=== PATIENT | male | born 1930 | race Two or more races ===

== ENCOUNTER 2017-02-22 13:15 | Outpatient (CLI) | payer MEDICARE, MEDICAID ==
[~2017-02-22 13:15] MED LIST: ASPIRIN EC81 MG ORAL; ATORVASTATIN CA40 MG ORAL; CIALIS5 MG PO; DIOVAN160 MG ORAL; HTN; LIPITOR80 MG ORAL; PPI; RANITIDINE HCL150 M2 PO; TAMSULOSIN HCL0.4 MG ORAL; cholesterol; prostate
--- NOTE | 2017-02-22 13:45 | GI Progress Note ---
Assessment/Plan Problems: (1) GERD (gastroesophageal reflux disease) ICD Codes: K21.9 - Gastro-esophageal reflux disease without esophagitis SNOMED: 138176931 (2) H/O colonoscopy ICD Codes: Z98.89 - Other specified postprocedural states SNOMED: 59427835, 609276217860 Status: stable Status Narrative Seen with Dr. Amaral. Assessment/Plan colonoscopy reviewed >> polyp x 1, internal hemorrhoids rx dexilant fu with Dr. Gonzalez Subjective Subjective colonscopy review GERD >> takes zantac with no relief. Objective T 97.7 BP 128/52 P 55 96 RA weight loss of 5 lbs in past month General Appearance: no apparent distress, alert Cardiovascular: normal rate Respiratory/Chest: normal breath sounds, no respiratory distress Abdominal Exam: normal bowel sounds, non tender, soft Genitourinary/Rectal: normal genital exam Extremities: normal range of motion Beverly Trejo N.P. February 22, 2017 13:45
[2017-02-22 15:53] VITALS: BP 128/52
== END 2017-02-22 17:00 | disposition home or self-care (01) ==
LOC: PAN 13:15
DX: K21.9 Gastro-esophageal reflux disease without esophagitis (principal); Z98.890 Other specified postprocedural states
CPT/HCPCS: 99211